=== PATIENT | male | born 1960 | race Caucasian/White ===

== ENCOUNTER 2016-11-02 14:13 | Emergency (ER) | payer OTHER ==
[~2016-11-02] VITALS: Ht 172.7 cm; Wt 98.0 kg
[2016-11-02 14:53] LABS: HEMATOCRIT 43.6 % (38.0-50.0); MCH 29.9 PG (29.0-34.0); MCHC 33.5 G/DL (30.0-36.0); MCV 89.3 FL (86-99); MEAN PLAT.VOLUME 9.6 uM^3 (9.0-12.4); PLATELET COUNT 264 K/uL (156-360); RBC DIS.WIDTH-CV 13.2 % (11.8-14.6); RBC DIS.WIDTH-SD 43.2 % (39-53); RED BLOOD COUNT 4.88 M/uL (4.00-5.50); WHITE BLOOD COUNT 8.5 K/uL (4.1-10.2)
[2016-11-02 15:04] LABS: CHLORIDE 105 mEq/L (99-109); POTASSIUM 4.1 mEq/L (3.7-5.4); SODIUM 139 mEq/L (136-147)
[2016-11-02 15:06] LABS: GLUCOSE 99 mg/dL (70-99)
[2016-11-02 15:07] LABS: ANION GAP 8 MEQ/L (2-14)
[2016-11-02 15:08] LABS: TOTAL BILIRUBIN 0.3 mg/dL (0.0-1.0)
[2016-11-02 15:10] LABS: ALKALINE PHOSPHATASE 70 IU/L (3-129)
[2016-11-02 15:11] LABS: UREA NITROGEN (BUN) 14 mg/dL (9-23)
[2016-11-02 15:13] LABS: LIPASE 14 U/L (1.0-51.0)
[2016-11-02 15:14] LABS: GFR ESTIMATE (CALCULATED) > 59 mL/min/
[2016-11-02 16:49] LABS: ADD MIUA? YES; BILIRUBIN NEGATIVE; BLOOD NEGATIVE; COLOR YELLOW ((YELLOW)); GLUCOSE (STRIP) NEGATIVE; KETONES NEGATIVE; LEUKOCYTES NEGATIVE; NITRITE NEGATIVE; PROTEIN (STRIP) 30; SPECIFIC GRAVITY 1.013 (1.000-1.030); UROBILINOGEN 0.2 MG/DL (0.2-1.0)
[2016-11-02 16:52] LABS: BACTERIA RARE /HPF; EPITHELIAL CELLS NONE SEEN /HPF; MUCUS NONE SEEN /LPF; RED BLOOD CELLS NONE SEEN /HPF (0-5); UCUL ADDED? NO; WHITE BLOOD CELLS NONE SEEN /HPF (0-5)
[2016-11-02 18:21] VITALS: BP 143/91
== END 2016-11-02 18:22 ==
LOC: EME 14:13
DX: K44.9 Diaphragmatic hernia without obstruction or gangrene (principal); K21.9 Gastro-esophageal reflux disease without esophagitis; Z87.891 Personal history of nicotine dependence
CPT/HCPCS: 74177; 80053; 81003; 83690; 85027; 99281; 99284; C9113; J2405; J7030